=== PATIENT | male | born 1965 | race Caucasian/White ===

== ENCOUNTER 2025-04-18 09:54 | Emergency (ER) | payer MEDICAID ==
[~2025-04-18] VITALS: Ht 170.2 cm; Wt 54.5 kg
[2025-04-18 09:57] VITALS: TEMP 98.4
--- NOTE | 2025-04-18 10:44 | Physician Documentation ---
History of Present Illness ~ Chief Complaint: Overdose Stated Complaint: OD Time Seen by MD: 10:38 Source: patient Mode of Arrival: EMS Exam Limitations: no limitations HPI 59-year-old male who was brought in by EMS due to bystanders who found him down in called 911. Patient was given Narcan and immediately went into withdrawal symptoms. Patient admitted to doing fentanyl but is unable to say what time he did the fentanyl. He states that he snorts fentanyl. Denies any other drug use. Medication Reconciliation Allergies: Coded Allergies: No Known Allergies (Unverified , 04/18/25) Past Medical History Past Medical History: No Pertinent History Review of Systems All Other Systems at this time: Reviewed and Negative Physical Exam Vital Signs: Temperature: 98.4, Source: Temporal, Heart Rate: 92, Respiratory Rate: 17, BP: 120/77, Pulse Oximetry: 96, Weight: 54.550 Oxygen Flow Rate: 0 Physical Exam General Appearance: Patient is sleeping on gurney he is arousable but keeps eyes closed and very quickly falls back to sleep. HEENT: NCAT, PERRL, EOMI. Neck: Supple, trachea midline. Cardiovascular: RRR. No m/r/g. Lungs: CTAB. Breathing unlabored Extremities: Normal inspection. No edema. Skin: Warm/dry, normal color Neurological: Patient is arousable, sleepy. Psychiatric: Affect congruent with mood. Progress Results/Orders Results/Orders Completed Orders - JAVIER RICO Normal Saline 1000ml (Sodium Chloride 10 (04/18/25 10:40) Medications Received in ER Medications (Trade) Dose Ordered Sig/Yamilet Route PRN Reason Start Time Stop Time Status Last Admin Dose Admin (sodium chloride 1000ml IV soln) 1,000 ml ONCE ONCE IVB 04/18/25 10:40 04/18/25 10:41 DC 04/18/25 10:54 1,000 ML Vital Signs 04/18/25 04/18/25 04/18/25 09:57 10:09 11:49 Temp 98.4 Pulse 92 79 Resp 13 17 12 B/P (MAP) 120/77 137/93 (108) Pulse Ox 96 97 O2 Flow Rate 0 0 Re-Evaluation Re-Evaluation : Re-Evaluation Time: 12:02 Re-Evaluation: Improved Progress PATIENT SITTING UP AND EATING AND DRINKING, VITALS RECHECKED AND NORMAL. PT MONITORED FOR JUST OVER 2HOURS IN ER AND FELT TO BE STABLE FOR DISCHARGE. Medical Decision Making Differential Dx:Considerations: Include: Alcohol abuse, Anxiety, Bipolar disorder, Conversion disorder, Delirium, Depression, Drug Overdose-Accidental, Drug Overdose-Intentional, Encephalopathy, Hallucinations, Homicidal, Liver failure, Panic disorder, Personality disorder, Renal failure, Respiratory failure, Schizophrenia, Substance abuse, Suicidal attempt, Suidical gesture Departure Time of Disposition: 10:43 Disposition: 01 HOME / SELF CARE / HOMELESS Impression: Primary Impression: Overdose of opiate or related narcotic Qualified Codes: T40.601A - Poisoning by unspecified narcotics, accidental (unintentional), initial encounter Condition: Stable Discharge Instructions: Accidental Drug Poisoning, Adult, Opioid Overdose Additional Instructions: I HAVE MEDICALLY CLEARED YOU FOR REHAB AND THIS CLEARANCE IS GOOD FOR 24HOURS. I STRONGLY ENCOURAGED YOU TO CHECK YOURSELF INTO A DETOX OR REHAB PROGRAM YOU ALMOST FROM ACCIDENTAL OVERDOSE OF FENTANYL Referrals: NO PRIMARY CARE PROVIDER (PCP) Education Educated: Patient Educated regarding: diagnosis, treatment, need for follow up Signature Scribe Signature: X Attestation: JAVIER EL April 18, 2025 10:44
[2025-04-18] MEDS: normal saline 1000ML IV soln IVB ONE (10:54)
[2025-04-18 12:34] VITALS: BP 128/83; PULSE 80; RESP 19; O2SAT 99
== END 2025-04-18 12:38 | disposition home or self-care (01) ==
LOC: ER 09:55
DX: T40.601A Poisoning by unspecified narcotics, accidental (unintentional), initial encounter (principal); Y92.89 Other specified places as the place of occurrence of the external cause
CPT/HCPCS: 96360; 99283; J7030